=== PATIENT | female | born 1950 | race Caucasian/White ===

== ENCOUNTER 2019-08-17 07:35 | Outpatient (CLI) | payer MEDICARE, SELFPAY ==
[2019-08-17 08:19] LABS: Alanine Aminotransferase 27 U/L (4-35); Albumin Level 4.4 g/dL (3.5-5.1); Alkaline Phosphatase 92 U/L (38-126); Aspartate Amino Transferase 33 U/L (14-36); Bilirubin,Total 0.6 mg/dL (0.2-1.3); Blood Urea Nitrogen 11 mg/dL (7-17); Calcium 9.4 mg/dL (8.4-10.2); Carbon Dioxide 27 mmol/L (22-30); Chloride 102 mmol/L (98-107); Cholesterol 202 mg/dL (0-200); Estimated Glomerular Filt Rate 55; Glucose 146 mg/dL (65-105); HDL Direct 61 mg/dL; Potassium 4.4 mmol/L (3.4-5.0); Sodium 137 mmol/L (137-145); Triglycerides 216 mg/dL (<150)
[2019-08-17 08:26] LABS: Hemoglobin A1C 6.3 % (<5.7)
[2019-08-17 08:29] LABS: LDL Cholesterol Direct 103 mg/dL
[2019-08-17 08:43] LABS: Creatinine Urine 263.4 mg/dL
[2019-08-17 08:47] LABS: MALB Creatinine Ratio 12.7 mg/g (0-30); Microalbumin Urine Random 33.5 mg/L (0-16.7)
== END 2019-08-17 07:36 | disposition home or self-care (01) ==
LOC: ANHLAB 07:37
PROVIDERS: PCP Emergency Medicine; Visit Provider Emergency Medicine
DX: E07.9 Disorder of thyroid, unspecified (principal); E78.5 Hyperlipidemia, unspecified; E11.9 Type 2 diabetes mellitus without complications
CPT/HCPCS: 36415; 80053; 80061; 82043; 83036; 84443

== ENCOUNTER 2019-09-29 09:53 | Outpatient (CLI) | payer MEDICARE, SELFPAY | END 2019-09-29 09:54 | disposition home or self-care (01) | LOC: ANHLAB 09:54 | PROVIDERS: PCP Emergency Medicine; Visit Provider Emergency Medicine | DX: R53.83 Other fatigue (principal) | CPT/HCPCS: 36415; 84443 ==

== ENCOUNTER 2019-12-28 08:00 | Outpatient (CLI) | payer MEDICARE, SELFPAY ==
[2019-12-28 08:46] LABS: Alanine Aminotransferase 37 U/L (4-35); Albumin Level 4.4 g/dL (3.5-5.1); Alkaline Phosphatase 96 U/L (38-126); Anion Gap 12 mmol/L (8-16); Aspartate Amino Transferase 42 U/L (14-36); Bilirubin,Total 0.8 mg/dL (0.2-1.3); Blood Urea Nitrogen 11 mg/dL (7-17); Calcium 9.7 mg/dL (8.4-10.2); Carbon Dioxide 27 mmol/L (22-30); Chloride 100 mmol/L (98-107); Cholesterol 186 mg/dL (0-200); Estimated Glomerular Filt Rate > 60; Glucose 159 mg/dL (65-105); HDL Direct 56 mg/dL; Potassium 4.5 mmol/L (3.4-5.0); Sodium 139 mmol/L (137-145); Triglycerides 271 mg/dL (<150)
[2019-12-28 08:57] LABS: LDL Cholesterol Direct 91 mg/dL
== END 2019-12-28 08:01 | disposition home or self-care (01) ==
PROVIDERS: PCP Emergency Medicine; Visit Provider Emergency Medicine
DX: E78.5 Hyperlipidemia, unspecified (principal); E11.9 Type 2 diabetes mellitus without complications; E07.9 Disorder of thyroid, unspecified
CPT/HCPCS: 36415; 80053; 80061; 83036; 84443

== ENCOUNTER 2020-04-26 07:39 | Outpatient (CLI) | payer MEDICARE, SELFPAY ==
[2020-04-26 08:28] LABS: Hemoglobin A1C 5.7 % (<5.7)
[2020-04-26 08:32] LABS: Alanine Aminotransferase 26 U/L (4-35); Albumin Level 4.2 g/dL (3.5-5.1); Alkaline Phosphatase 76 U/L (38-126); Anion Gap 8 mmol/L (8-16); Aspartate Amino Transferase 34 U/L (14-36); Bilirubin,Total 0.7 mg/dL (0.2-1.3); Blood Urea Nitrogen 12 mg/dL (7-17); Calcium 9.2 mg/dL (8.4-10.2); Carbon Dioxide 27 mmol/L (22-30); Chloride 104 mmol/L (98-107); Cholesterol 183 mg/dL (0-200); Estimated Glomerular Filt Rate > 60; Glucose 121 mg/dL (65-105); HDL Direct 55 mg/dL; Potassium 4.4 mmol/L (3.4-5.0); Sodium 139 mmol/L (137-145); Triglycerides 210 mg/dL (<150)
[2020-04-26 08:42] LABS: LDL Cholesterol Direct 93 mg/dL
[2020-04-26 08:43] LABS: Creatinine Urine 171.2 mg/dL
[2020-04-26 08:47] LABS: MALB Creatinine Ratio 10.2 mg/g (0-30); Microalbumin Urine Random 17.4 mg/L (0-16.7)
== END 2020-04-26 07:40 | disposition home or self-care (01) ==
PROVIDERS: PCP Emergency Medicine; Visit Provider Emergency Medicine
DX: E78.5 Hyperlipidemia, unspecified (principal); E11.9 Type 2 diabetes mellitus without complications
CPT/HCPCS: 36415; 80053; 80061; 82043; 83036

== ENCOUNTER → 2020-06-25 12:04 | Outpatient (CLI) | payer MEDICARE, SELFPAY ==
--- NOTE | ~2020-06-25 | DEXA_ITS ---
Bone Density Report Name: Stacie Rivera Age: 70 Sex: Female Ethnicity: White Date of : 1950 Indication: postmenopausal; screening for osteoporosis; parental hip fracture; hysterectomy; Referring Provider: MORAIMA DUARTE Study: Bone densitometry was performed. Exam Date: June 25, 2020 Accession number: [id number] Bone Density: Region BMD T-score Z-score Classification AP Spine (L1-L4) 1.188 1.3 3.5 Normal Femoral Neck (Left) 0.773 -0.7 1.2 Normal Total Hip (Left) 1.012 0.6 2.1 Normal Femoral Neck (Right) 0.742 -1.0 0.9 Normal Total Hip (Right) 0.928 -0.1 1.4 Normal Total Hip Mean 0.970 0.3 1.8 Normal World Health Organization criteria for BMD impression classify patients as: Normal (T-score at or above -1.0), Osteopenia (T-score between -1.0 and -2.5), or Osteoporosis (T-score at or below -2.5). 10-year Fracture Risk: FRAX not reported because: All T-scores for Spine Total, Hip Total, Femoral Neck at or above -1.0 Clinical Information Provided by Patient: Parent has had a hip fracture Has used the following medications: Vitamin D, Calcium Has the following medical conditions: Hysterectomy Patient maximum height was 64 Menopause Age: 48 No regular weight bearing exercise Drinks caffeinated beverages Onset of menses at age 9 Number of children 2 Impression: The patient has normal bone mass. The patient has risk factors, including: parental hip fracture. Discussion: BONE DENSITY IS ABOVE THE MINIMUM DESIRABLE LEVEL AT ALL SKELETAL SITES TESTED. This patient?s bone mineral density is above the minimum desirable level (T-score -1.0 or better) at all sites measured. The patient should follow a healthful lifestyle (good nutrition with adequate calcium and vitamin D, and appropriate weight-bearing exercise). Follow-Up: Consider repeating this study in 5 years or sooner if there is some new clinical indication. Reported by: MO on 06/25/2020 12:24:00 PM. Reviewed, dictated and finalized at location [facility]
== END ==
PROVIDERS: PCP Emergency Medicine; Visit Provider Emergency Medicine
DX: Z78.0 Asymptomatic menopausal state (principal)
CPT/HCPCS: 77080

== ENCOUNTER 2020-06-28 14:42 | Emergency (ER) | payer MEDICARE, SELFPAY ==
--- NOTE | ~2020-06-28 | CT_ITS ---
EXAMINATION: CT brain wo con DATE: 06/28/2020 16:06 INDICATION: Head injury. TECHNIQUE: Computed tomography (CT) of the head was performed without intravenous contrast. The mA wa s adjusted according to patient size. Iterative reconstruction technique was employed. The dose-lengt h product was 605.33 mGy-cm. COMPARISON: Head CT 08/18/2012 FINDINGS: There is no intracranial hemorrhage, acute infarction, or abnormal intracranial mass lesion . The ventricles are normal in size. There is a left posterior scalp hematoma. There are likely fox es of ocular lens replacement surgeries. The paranasal sinuses are clear. The mastoid air cells are n ormal. IMPRESSION: 1. Normal brain. Reviewed, dictated and finalized at location A. IMPRESSION: 1. Normal brain.
--- NOTE | ~2020-06-28 | XR_ITS ---
EXAMINATION: XR elbow LT min 3V DATE: 06/28/2020 15:15 INDICATION: Left elbow pain TECHNIQUE: Anteroposterior, two oblique and lateral views of the left elbow were obtained. COMPARISON: None. FINDINGS: Alignment is normal. No fracture or joint effusion. Joint spaces are normal. There is dorsa l soft tissue swelling of the elbow. IMPRESSION: 1. No acute osseous abnormality. Reviewed, dictated and finalized at location B.
--- NOTE | ~2020-06-28 | CT_ITS ---
EXAMINATION: CT cervical spine wo con DATE: 06/28/2020 16:06 INDICATION: Head injury. TECHNIQUE: Computed tomography (CT) of the cervical spine was performed without intravenous contrast. Automated exposure control and iterative reconstruction technique were employed. The dose-length pro duct was 389.69 mGy-cm. COMPARISON: None FINDINGS: There is 2 mm anterolisthesis of C7 on T1. There is 7 degrees dextrocurvature of cervical s pine. Vertebral body heights are normal. There is mildly decreased disc height at C3-C4, severely dec reased disc height at C4-C5, moderately decreased disc height at C5-C6, and severely decreased disc h eight at C6-C7. The following disc levels are specifically discussed: C2-C3: There is mild right and moderate left uncovertebral joint osteoarthritis. There is mild right and severe left facet joint osteoarthritis. There is mild left neural foraminal stenosis. There is mi ld central canal stenosis. C3-C4: There is moderate right and severe left uncovertebral joint osteoarthritis. There is mild bila teral facet joint osteoarthritis. There is mild right neural foraminal stenosis. There is no central canal stenosis. C4-C5: There is moderate right and severe left uncovertebral joint osteoarthritis. There is mild bila teral facet joint osteoarthritis. There is moderate left neural foraminal stenosis. There is mild velia tral canal stenosis. C5-C6: There is severe bilateral uncovertebral joint osteoarthritis. There is no facet joint osteoart hritis. There is mild bilateral neural foraminal stenosis. There is mild central canal stenosis. C6-C7: There is severe bilateral uncovertebral joint osteoarthritis. There is mild right and moderate left facet joint osteoarthritis. There is mild bilateral neural foraminal stenosis. There is mild ce ntral canal stenosis. C7-T1: There is no uncovertebral joint osteoarthritis. There is moderate right and severe left facet joint osteoarthritis. There is mild left neural foraminal stenosis. There is no central canal stenosi s. IMPRESSION: 1. No fracture. 2. Severe cervical spondylosis. Reviewed, dictated and finalized at location A.
[2020-06-28 14:46] VITALS: BP 123/72; PULSE 82; RESP 20; TEMP 36.4; O2SAT 99
[2020-06-28 17:46] VITALS: BP 111/93; PULSE 72; RESP 18; O2SAT 97
--- NOTE | 2020-06-28 18:07 | ED.GENADULT ---
HPI - General Adult General Chief complaint: Fall Stated complaint: fall Time Seen by Provider: 06/28/20 17:53 Source: patient Mode of arrival: ambulatory Limitations: no limitations History of Present Illness HPI narrative: Patient is a 70-year-old female who was evaluated in the emergency department for injuries related to a ground-level fall after tripping over her dog chain patient notes pain to the head where she has a hematoma she also notes pain to the neck and lower lumbar region and left elbow patient denies loss of consciousness syncope patient has not taken anything for pain patient on arrival does not appear distressed or uncomfortable while patient waited in triage she had imaging of the head neck and left elbow which were unremarkable upon placement in the room patient was updated to her findings patient does not want any further imaging and notes that her low back pain is not severe and that she will follow with primary care if it persists patient feels comfortable with discharge home with follow-up with family physician Related Data Home Medications Medication Instructions Recorded Confirmed acetaminophen 500 mg tablet 500 mg PO DAILY PRN tablet 05/17/19 aspirin 81 mg tablet,delayed 81 mg PO DAILY 05/17/19 release cyanocobalamin (vitamin B-12) 1,000 mcg PO .COMPLEX 05/17/19 1,000 mcg tablet meclizine 25 mg tablet 25 mg PO TID PRN tablet 05/17/19 omega-3 fatty acids 1,000 mg 1,000 mg PO .daily in the am cap 05/17/19 capsule Allergies Allergy/AdvReac Type Severity Reaction Status Date / Time No Known Allergies Allergy Unverified 06/13/19 14:51 Review of Systems Review of Systems: All systems reviewed & are unremarkable except as noted in HPI and below [facility] Past Medical History Medical History (Updated 06/28/20 @ 18:13 by David Castillo PA-C) Arthritis Chicken pox Diabetes FH: cataracts High cholesterol Mononucleosis Mumps Surgical History Surgical History History of cholecystectomy (~2015) History of hysterectomy (~1998) Hx of tonsillectomy (~1957) Family History Family History Father , 39 Heart attack Mother , 94 Parkinsons disease Sibling Lung cancer Sibling Family history of allergic disorder Family history of diabetes mellitus in first degree relative Family history of lung cancer Hypertension Mother Family history of Parkinson's disease Family history of dementia Father Acute myocardial infarction Patient's father is Other Family history of cardiovascular disease Family history of irritable bowel syndrome Social History Social History Years smoked: 3 Smoking status: Former smoker Smoking end date: 03/15/89 Alcohol intake: former Substance use: never Gender identity (if verbalized by the patient): Female Exam Narrative: Exam Narrative: GENERAL: Well-appearing, well-nourished, and in no acute distress. HEAD: Normocephalic, hematoma to the posterior head EYES: PERRLA and EOMI. ENT: Nares clear, no rhinorrhea or epistaxis. Mucous membranes moist. NECK: Supple. No adenopathy or masses. CHEST: Clear to auscultation. No respiratory distress. No wheezes rales or rhonchi HEART: Regular rate and rhythm. No murmur heard. Normal peripheral pulses. ABDOMEN: Soft, nontender, nondistended EXTREMITIES: Normal range of motion. No edema. Abrasion left elbow with tenderness. Mild tenderness of the cervical and lumbar spine no thoracic tenderness SKIN: Warm, dry, no rash. NEURO: No focal deficits. Alert and oriented x3. Cranial nerves II through XII grossly intact. Normal speech and gait PSYCH: Normal mood and affect. Course Course Emergency Course: Patient in the room at this time aware of case findings treatment plan diagnos
[2020-06-28] MEDS: HYDROcodone/acetaminophen (*CRX) 5-325 MG TABLET 1 TAB PO (18:20)
== END 2020-06-28 18:39 | disposition home or self-care (01) ==
PROVIDERS: Emergency Provider Emergency Medicine; PCP Emergency Medicine
DX: S00.03XA Contusion of scalp, initial encounter (principal); S16.1XXA Strain of muscle, fascia and tendon at neck level, initial encounter; S39.012A Strain of muscle, fascia and tendon of lower back, initial encounter; S50.02XA Contusion of left elbow, initial encounter; M19.90 Unspecified osteoarthritis, unspecified site; E11.9 Type 2 diabetes mellitus without complications; E78.00 Pure hypercholesterolemia, unspecified; Z87.891 Personal history of nicotine dependence; M47.812 Spondylosis without myelopathy or radiculopathy, cervical region; Z79.82 Long term (current) use of aspirin; Z79.84 Long term (current) use of oral hypoglycemic drugs; W18.09XA Striking against other object with subsequent fall, initial encounter
CPT/HCPCS: 70450; 72125; 73080; 99284; A9270

== ENCOUNTER 2020-10-04 07:05 | Outpatient (CLI) | payer MEDICARE, SELFPAY ==
[2020-10-04 08:17] LABS: Alanine Aminotransferase 25 U/L (4-35); Albumin Level 4.4 g/dL (3.5-5.1); Alkaline Phosphatase 81 U/L (38-126); Anion Gap 10 mmol/L (8-16); Aspartate Amino Transferase 32 U/L (14-36); Bilirubin,Total 0.6 mg/dL (0.2-1.3); Blood Urea Nitrogen 12 mg/dL (7-17); Calcium 9.8 mg/dL (8.4-10.2); Carbon Dioxide 27 mmol/L (22-30); Chloride 102 mmol/L (98-107); Cholesterol 210 mg/dL (0-200); Estimated Glomerular Filt Rate > 60; Glucose 120 mg/dL (65-110); HDL Direct 59 mg/dL; Potassium 4.7 mmol/L (3.4-5.0); Sodium 139 mmol/L (137-145); Triglycerides 270 mg/dL (<150)
[2020-10-04 08:28] LABS: LDL Cholesterol Direct 97 mg/dL
[2020-10-04 11:42] LABS: Hemoglobin A1C 5.8 % (<5.7)
[2020-10-04 12:10] LABS: Vitamin B12 > 1000.0 pg/mL (239-931)
== END 2020-10-04 07:06 | disposition home or self-care (01) ==
PROVIDERS: PCP Internal Medicine; Visit Provider Internal Medicine
DX: R41.3 Other amnesia (principal); E11.9 Type 2 diabetes mellitus without complications; I10 Essential (primary) hypertension; E03.9 Hypothyroidism, unspecified; E78.5 Hyperlipidemia, unspecified
CPT/HCPCS: 36415; 80053; 80061; 82607; 83036; 84443

== ENCOUNTER 2021-02-04 10:07 | Emergency (ER) | payer MEDICARE, SELFPAY ==
[2021-02-04] VITALS (17 sets, daily range): BP systolic 70–123; BP diastolic 56–76; PULSE 74–112; RESP 14–35; TEMP 36.4–37.7; O2SAT 99–100
--- NOTE | ~2021-02-04 | XR_ITS ---
EXAMINATION: XR chest port-a-cath/central EXAM DATE: 02/04/2021 13:12 INDICATION: central line placement check TECHNIQUE: Portable AP frontal chest x-ray was obtained. Comparison is made to prior examination from 11/17/2012. FINDINGS: There is a right-sided IJ venous line, tip projecting over cavoatrial junction. Relatively low lung volume. No confluent consolidation, pneumothorax or pleural effusion suspected. There are no sizable pleural effusions. There is no pneumothorax suspected. The cardiomediastinal silhouet te is prominent but magnified on this AP technique. The bones and soft tissues are unremarkable. IMPRESSION: No postprocedure pneumothorax or acute cardiopulmonary findings. Reviewed, dictated and finalized at location A. [employer]
--- NOTE | ~2021-02-04 | NM_ITS ---
EXAMINATION: NM GI bleeding DATE: 02/04/2021 16:16 INDICATION: Rectal bleeding TECHNIQUE: 20.2 mCi Tc 99m in vitro labeled red cells administered intravenously. Scintigraphic imag es of the abdomen were obtained through 1 hour. FINDINGS: No pattern of abnormal activity is seen in the abdomen or pelvis to suggest gastrointestina l hemorrhage. IMPRESSION: 1. No scintigraphic evidence for active gastrointestinal bleeding. Reviewed, dictated and finalized at location A. [employer]
--- NOTE | ~2021-02-04 | CT_ITS ---
EXAMINATION: CT abdomen pelvis w con DATE: 02/04/2021 14:05 INDICATION: Gastrointestinal bleed TECHNIQUE: Computed tomography (CT) of the abdomen and pelvis was performed with 100 mL Omnipaque-350 intravenous contrast. Automated exposure control and iterative reconstruction technique were employe d. The dose-length product was 1421.03 mGy-cm. COMPARISON: Abdominal MRI dated 04/12/2015 FINDINGS: Mild emphysema with mild atelectasis likely related to expiratory phase of imaging in the bilateral l ower lung zones. Heart size is normal. No pericardial or pleural effusion. Tip of a central venous ca theter extends caudally from the superior vena cava into the high right atrium. Mild dilation of the common bile duct measuring up to 7 mm which is within normal limits post cholecystectomy with surgica l clips at the gallbladder fossa. Liver, spleen, pancreas, bilateral adrenal glands and right kidney are normal. 1.4 similar exophytic left renal cyst. There is mild colonic diverticulosis with a sigmoi d predominance. Fluid in the distal colon consistent with diarrhea. There is no adjacent inflammatory change to suggest diverticulitis. Small bowel and appendix are normal. Bladder is normal. The uterus is not identified and has likely been surgically resected. No free intraperitoneal gas or fluid. No pathologically enlarged abdominal or pelvic lymphadenopathy. Small fat-containing umbilical and supra umbilical hernias. Severe disc height loss at L5-S1 with mild levocurvature and mild spondylosis in t he more cephalad lumbar spine. IMPRESSION: 1. Mild sigmoid predominant diverticulosis with fluid in the distal colon consistent with diarrhea. Reviewed, dictated and finalized at location A. [employer] IMPRESSION: 1. Mild sigmoid predominant diverticulosis with fluid in the distal colon consi stent with diarrhea.
--- NOTE | 2021-02-04 10:27 | ED.GENADULT ---
HPI - General Adult General Chief complaint: GI Bleed <Benny Garcia PA-C - Last Filed: 02/04/21 16:25> Stated complaint: lots of blood coming out of my butt <Benny Garcia PA-C - Last Filed: 02/04/21 16:25> Time Seen by Provider: 02/04/21 10:10 <Benny Garcia PA-C - Last Filed: 02/04/21 16:25> Source: patient <SEGUN Nuñez Last Filed: 02/04/21 16:25> Mode of arrival: ambulatory <SEGUN Nuñez Last Filed: 02/04/21 16:25> Limitations: no limitations <Benny Garcia PA-C - Last Filed: 02/04/21 16:25> History of Present Illness HPI narrative: Patient is 70-year-old female with chief complaint of profuse bright red rectal bleeding mixed with diarrhea that began this morning. Patient reports that she has had 4 bouts of completely liquid bright red bloody stool. She denies having any abdominal pain, nausea, vomiting, fever, chills, shortness of breath, chest pain. Patient states she has never had a colonoscopy. Patient denies having a history of ulcers or prior GI bleed. She states that Dr. Delarosa remove her gallbladder approximately 4 years ago. She reports intermittent bouts of diarrhea depending on what she eats since that time but not containing blood. Patient reports taking a baby aspirin daily. <Benny Garcia PA-C - Last Filed: 02/04/21 16:25> Related Data Home medications: Home Medications Medication Instructions Recorded Confirmed acetaminophen 500 mg tablet 500 mg PO DAILY PRN tablet 05/17/19 09/30/20 aspirin 81 mg tablet,delayed 81 mg PO DAILY 05/17/19 09/30/20 release cyanocobalamin (vitamin B-12) 1,000 mcg PO .COMPLEX 05/17/19 09/30/20 1,000 mcg tablet meclizine 25 mg tablet 25 mg PO TID PRN tablet 05/17/19 09/30/20 omega-3 fatty acids 1,000 mg 1,000 mg PO .daily in the am cap 05/17/19 09/30/20 capsule <Benny Garcia PA-C - Last Filed: 02/04/21 16:25> Allergies/adverse reactions: Allergies Allergy/AdvReac Type Severity Reaction Status Date / Time No Known Allergies Allergy Verified 09/30/20 08:52 <Benny Garcia PA-C - Last Filed: 02/04/21 16:25> Review of Systems Review of Systems: CONSTITUTIONAL: Denies fever, chills, or sweats. EYES: Denies visual changes, redness, or discharge. ENT: Denies rhinorrhea, congestion, sore throat, or otalgia. CARDIOVASCULAR: Denies chest pain, palpitations, or edema. RESPIRATORY: Denies cough or dyspnea. GASTROINTESTINAL: Reports rectal bleeding and diarrhea denies abdominal pain, nausea, vomiting GENITOURINARY: Denies dysuria or hematuria. SKIN: Denies rash or itching. MUSCULOSKELETAL: Denies back pain, joint pain, or myalgia. NEUROLOGIC: Denies headache, numbness, dizziness, or weakness. PSYCHIATRIC: Denies anxiety or depression. <Benny Garcia PA-C - Last Filed: 02/04/21 16:25> [facility] Past Medical History Medical History: Medical History (Updated 02/04/21 @ 16:25 by Benny Garcia PA-C) Anxiety Arthritis Change in weight Chicken pox Diabetes Diabetes mellitus Difficulty breathing Dizziness FH: cataracts Hair changes Hepatitis High cholesterol Hot flashes Memory loss Mononucleosis Mumps Numbness Painful joint Skin change Weakness <Benny Garcia PA-C - Last Filed: 02/04/21 16:25> Surgical History Surgical History: Surgical History History of cholecystectomy (~2015) History of hysterectomy (~1998) Hx of tonsillectomy (~1957) <Benny Garcia PA-C - Last Filed: 02/04/21 16:25> Family History Family History: Family History (Updated 09/30/20 @ 08:43 by Jie Lombardo [facility]) Father , 39 Heart attack Hypertension Mother , 94 Parkinsons disease Dementia Sibling Lung cancer Sibling Family history of allergic disorder Family history of diabetes mellitus in first degree relative Family history of lung cancer Hypertension Mother Family history of
[2021-02-04 10:49] LABS: Basophils Absolute Auto 0.1 K/mm3 (0.0-0.1); Basophils Percent Auto 1.2 % (0.2-1.2); Eosinophils Absolute Auto 0.2 K/mm3 (0-0.3); Eosinophils Percent Auto 2.3 % (0-4.4); Hematocrit 36.2 % (37.0-47.0); Hemoglobin 12.2 g/dL (12.0-15.0); Immature Granulocyte Absolute 0.06 K/mm3 (0.00-0.031); Immature Granulocyte Percent A 0.6 % (0-0.5); Lymphocytes Absolute Auto 2.48 K/mm3 (0.9-3.2); Lymphocytes Percent Auto 24.8 % (18.3-44.2); Mean Corpuscular HGB Conc 33.7 g/dl (32-36); Mean Corpuscular Hemoglobin 30.1 pg (26-34); Mean Corpuscular Volume 89.4 fl (80-100); Mean Platelet Volume 9.8 fl (7.4-10.4); Monocytes Absolute Auto 0.5 K/mm3 (0.1-0.6); Monocytes Percent Auto 4.7 % (2.6-8.5); Neutrophils Absolute Auto 6.7 K/mm3 (1.3-6.7); Neutrophils Percent Auto 66.4 % (45.5-73.1); Platelet Count Result 493 k/mm3 (150-375); Red Blood Count 4.05 M/mm3 (4.2-5.4); Red Cell Distribution Width 12.7 % (11.5-14.5)
[2021-02-04 10:58] LABS: Alanine Aminotransferase 18 U/L (4-35); Albumin Level 3.9 g/dL (3.5-5.1); Alkaline Phosphatase 80 U/L (38-126); Anion Gap 14 mmol/L (8-16); Aspartate Amino Transferase 26 U/L (14-36); Bilirubin,Total 0.5 mg/dL (0.2-1.3); Blood Urea Nitrogen 13 mg/dL (7-17); Calcium 9.1 mg/dL (8.4-10.2); Carbon Dioxide 20 mmol/L (22-30); Chloride 100 mmol/L (98-107); Estimated CRCL calculation 52 ml/min; Estimated Glomerular Filt Rate > 60; Glucose 278 mg/dL (65-110); Partial Thromboplastin Time 26.1 SECONDS (22.3-36.8); Potassium 5.1 mmol/L (3.4-5.0); Sodium 134 mmol/L (137-145)
[2021-02-04] MEDS: SODIUM CHLORIDE 0.9% IV 1,000 ML 999 ML IV CONT ×2 (11:01→12:06)
[2021-02-04] MEDS: LORazepam INJ (*CRX) 2 MG/ML VIAL IV PUSH (12:06)
[2021-02-04] MEDS: HYDROmorphone HCL INJ (*CRX) 1 MG/ML SYR 0.5 MG IV PUSH (12:22)
[2021-02-04] MEDS: ONDANSETRON INJ 4 MG/2 ML VIAL (12:55)
--- NOTE | 2021-02-04 13:26 | PC.NURSE ---
transfer center call to have a face sheet faxed to facility. faxed@ [phone]
[2021-02-04 13:29] LABS: Hemoglobin 7.6 g/dL (12.0-15.0)
[2021-02-04] MEDS: PANTOPRAZOLE SODIUM IV 40 MG VIAL IV PUSH (13:29)
[2021-02-04] MEDS: SODIUM CHLORIDE 0.9% IV 250 ML 30 ML IV CONT (14:51)
--- NOTE | 2021-02-04 16:00 | PC.NURSE ---
Pt with nuclear medicine for scan at 1600, will perform patient's 1600 vitals for blood administration when patient returns.
--- NOTE | 2021-02-04 18:14 | PC.NURSE ---
Called Alexa at 1808, accepted transfer to [facility], room 3608. Eta 2100. Tip number [phone]
--- NOTE | 2021-02-04 20:00 | PC.NURSE ---
[facility] here to transport patient.
--- NOTE | 2021-02-04 20:07 | PM.IMHP ---
H&P: HPI History of Present Illness Date/Time: 02/04/21 20:07 this is a 70-year-old female patient who has not had any previous his use of a colonoscopy. She is not on any blood thinners. The patient stated that since early this morning she started having bright red bloody stools. She stated that she has had hemorrhoids before but never had any bleeding from them just a lot of pain. She denies any fever or chills. The patient is only taking a baby aspirin. Patient's H&H initially was 12.2 and 36.2 repeat H&H was 7.6 and 23.0. The patient received a blood transfusion in the emergency room. The patient is pale and having difficulty concentrating. Sodium 134 potassium 5.1. Her glucose is 278. Chest x-ray was read as no postprocedure pneumothorax or acute cardiopulmonary findings. The patient did have a central line placed on the right side of her neck in the emergency room. Abdominal pelvis CT was read as mild sigmoid predominant diverticulosis with fluid in the distal colon consistent with diarrhea. GI bleed scan was read as no scintigraphic evidence for acute gastrointestinal bleeding. The patient was given 3 L of fluid in the emergency room. She is also given Ativan once. A lot at once. IV Zofran. GI was consulted here and wanted to start a bowel prep. Home Inspector was notified. However was recommended that the patient be transferred to higher level of care. Multiple hospital were called per ED provider. We are awaiting a bed with higher level of care. Is reported that the patient has a bed available. This is the short-stay summary as the patient is going to be transferred elsewhere. She was initially admitted to observation status on the date of service 02/04/2021. Chief Complaint: GI bleed Review of Systems Review of Systems: All systems reviewed & are unremarkable except as noted in HPI and below Constitutional: Constitutional: Reports as per HPI and Reports no additional constitutional complaints Eyes: Eyes: Reports as per HPI and Reports no additional eye complaints ENT: Reports system reviewed and no additional complaints, except as documented and Reports Normal hearing present Cardiovascular: Cardiovascular: Reports no additional cardiovascular complaints Respiratory: Respiratory: Reports no additional respiratory complaints and Reports no additional respiratory complaints Gastrointestinal: Gastrointestinal: Reports as per HPI and Reports no additional gastrointestinal complaints Musculoskeletal: Musculoskeletal: Reports no additional musculoskeletal complaints Integumentary/Breasts: Skin/Breast: Reports system reviewed and no additional complaints, except as docu and Reports as per HPI Neurologic: Reports system reviewed and no additional complaints, except as documented, Reports as per HPI and Reports Normal hearing present Psychiatric: Psychiatric: Reports no additional psychiatric complaints and Reports as per HPI Endocrine: Endocrine: Reports no additional endocrine complaints Hematologic/Lymphatic: Hematologic/Lymphatic: Reports no additional hematologic/lymphatic complaints Allergic/Immunologic: Allergic/Immunologic: Reports no additional allergic/immunologic complaints PMFSH Past Medical History Medical History Anxiety Arthritis Change in weight Chicken pox Diabetes Diabetes mellitus Difficulty breathing Dizziness FH: cataracts Hair changes Hepatitis High cholesterol Hot flashes Memory loss Mononucleosis Mumps Numbness Painful joint Skin change Weakness Surgical History Surgical History (Updated 02/04/21 @ 20:13 by Dayna Mariee NP) H/O cataract extraction History of cholecystectomy (~2015) History of hysterectomy (~1998) Hx of tonsillectomy (~1957) Family History Family History Father , 39 Heart attack Hypertension Mother , 94 Parkinsons di
== END 2021-02-04 20:22 | disposition short-term general hospital (02) ==
PROVIDERS: Physician Assistant; Emergency Provider Emergency Medicine; PCP Internal Medicine
DX: K92.2 Gastrointestinal hemorrhage, unspecified (principal); I10 Essential (primary) hypertension; E07.9 Disorder of thyroid, unspecified; E78.5 Hyperlipidemia, unspecified; E11.40 Type 2 diabetes mellitus with diabetic neuropathy, unspecified; M54.9 Dorsalgia, unspecified; G89.29 Other chronic pain; F41.9 Anxiety disorder, unspecified; H40.9 Unspecified glaucoma; M19.90 Unspecified osteoarthritis, unspecified site; K57.30 Diverticulosis of large intestine without perforation or abscess without bleeding; Z79.82 Long term (current) use of aspirin; Z79.84 Long term (current) use of oral hypoglycemic drugs
CPT/HCPCS: 36415; 36430; 36556; 74177; 78278; 80053; 85014; 85018; 85025; 85610; 85730; 86850; 86900; 86901; 86920; 96361; 96374; 96375; 99285; A9560; C1751; C9113; J1170; J2060; J2405; J7030; J7050; P9016; Q9967

== ENCOUNTER 2021-02-17 09:38 | Outpatient (CLI) | payer MEDICARE, SELFPAY ==
[2021-02-17 10:10] LABS: Basophils Absolute Auto 0.1 K/mm3 (0.0-0.1); Basophils Percent Auto 1.3 % (0.2-1.2); Eosinophils Absolute Auto 0.2 K/mm3 (0-0.3); Eosinophils Percent Auto 2.1 % (0-4.4); Hematocrit 33.7 % (37.0-47.0); Hemoglobin 10.8 g/dL (12.0-15.0); Immature Granulocyte Absolute 0.01 K/mm3 (0.00-0.031); Immature Granulocyte Percent A 0.1 % (0-0.5); Lymphocytes Absolute Auto 1.61 K/mm3 (0.9-3.2); Lymphocytes Percent Auto 18.5 % (18.3-44.2); Mean Corpuscular Hemoglobin 29.4 pg (26-34); Mean Corpuscular Volume 91.8 fl (80-100); Mean Platelet Volume 9.8 fl (7.4-10.4); Monocytes Absolute Auto 0.5 K/mm3 (0.1-0.6); Monocytes Percent Auto 5.3 % (2.6-8.5); Neutrophils Absolute Auto 6.3 K/mm3 (1.3-6.7); Neutrophils Percent Auto 72.7 % (45.5-73.1); Platelet Count Result 412 k/mm3 (150-375); Red Blood Count 3.67 M/mm3 (4.2-5.4); Red Cell Distribution Width 14.3 % (11.5-14.5); White Blood Count 8.7 K/mm3 (4.5-10.0)
[2021-02-17 10:11] LABS: Alanine Aminotransferase 20 U/L (4-35); Albumin Level 4.3 g/dL (3.5-5.1); Alkaline Phosphatase 71 U/L (38-126); Anion Gap 8 mmol/L (8-16); Aspartate Amino Transferase 29 U/L (14-36); Bilirubin,Total 0.4 mg/dL (0.2-1.3); Blood Urea Nitrogen 9 mg/dL (7-17); Calcium 9.3 mg/dL (8.4-10.2); Carbon Dioxide 25 mmol/L (22-30); Chloride 101 mmol/L (98-107); Estimated Glomerular Filt Rate > 60; Glucose 118 mg/dL (65-110); Potassium 4.6 mmol/L (3.4-5.0); Sodium 134 mmol/L (137-145)
== END 2021-02-17 09:39 | disposition home or self-care (01) ==
LOC: ANHLAB 09:42
PROVIDERS: PCP Internal Medicine; Visit Provider Nurse Practitioner
DX: K62.5 Hemorrhage of anus and rectum (principal); E11.40 Type 2 diabetes mellitus with diabetic neuropathy, unspecified
CPT/HCPCS: 36415; 80053; 85025

== ENCOUNTER 2021-03-27 09:12 | Outpatient (CLI) | payer MEDICARE, SELFPAY ==
[2021-03-27 09:41] LABS: Alanine Aminotransferase 24 U/L (4-35); Albumin Level 4.5 g/dL (3.5-5.1); Alkaline Phosphatase 80 U/L (38-126); Anion Gap 9 mmol/L (8-16); Aspartate Amino Transferase 30 U/L (14-36); Bilirubin,Total 0.4 mg/dL (0.2-1.3); Blood Urea Nitrogen 11 mg/dL (7-17); Calcium 9.7 mg/dL (8.4-10.2); Carbon Dioxide 25 mmol/L (22-30); Chloride 105 mmol/L (98-107); Cholesterol 216 mg/dL (0-200); Estimated Glomerular Filt Rate > 60; Glucose 111 mg/dL (65-110); HDL Direct 67 mg/dL; Potassium 4.8 mmol/L (3.4-5.0); Sodium 139 mmol/L (137-145); Triglycerides 242 mg/dL (<150)
[2021-03-27 09:48] LABS: Hemoglobin A1C 5.6 % (<5.7)
[2021-03-27 09:51] LABS: LDL Cholesterol Direct 97 mg/dL
== END 2021-03-27 09:13 | disposition home or self-care (01) ==
LOC: ANHLAB 09:16
PROVIDERS: PCP Internal Medicine; Visit Provider Internal Medicine
DX: E11.40 Type 2 diabetes mellitus with diabetic neuropathy, unspecified (principal); I10 Essential (primary) hypertension; E78.5 Hyperlipidemia, unspecified
CPT/HCPCS: 36415; 80053; 80061; 83036

== ENCOUNTER 2021-06-23 00:12 | Day surgery (SDC) | payer MEDICARE, SELFPAY ==
[2021-06-12 09:40] VITALS: BMI 32.8
[2021-06-23 08:54] VITALS: BP 142/83; PULSE 85; RESP 20; TEMP 36.1; O2SAT 100; BMI 33.6
[2021-06-23 08:54] LABS: Glucose Point of Care 134 mg/dl (65-105)
[2021-06-23] MEDS: LACTATED RINGERS 1,000 ML 150 ML IV CONT (09:10)
--- NOTE | 2021-06-23 09:10 | PM.HPGS ---
History of Present Illness History of Present Illness Consent: Risks, benefits, and alternatives have been discussed and questions answered. Patient agrees to proceed with procedure. Chief complaint: hx of colon polyps Narrative: Stacie Baker is a 71 year old female referred for colon cancer screening. She was found have a polyp during admission for lower gastrointestinal bleeding last year. She had a colonoscopy at [facility] where a polyp was seen but the physician elected not to remove it. Review of Systems Review of Systems: All systems reviewed & are unremarkable except as noted in HPI and below PMFSH Past Medical History Medical History Anxiety Arthritis Change in weight Chicken pox Diabetes Diabetes mellitus Difficulty breathing Dizziness FH: cataracts Hair changes Hepatitis High cholesterol Hot flashes Memory loss Mononucleosis Mumps Numbness Painful joint Skin change Weakness Surgical History Surgical History H/O cataract extraction History of cholecystectomy (~2016) History of hysterectomy (~1998) Hx of tonsillectomy (~7) Family History Family History Father , 39 Heart attack Hypertension Mother , 94 Parkinsons disease Dementia Sibling Lung cancer Sibling Family history of allergic disorder Family history of diabetes mellitus in first degree relative Family history of lung cancer Hypertension Mother Family history of Parkinson's disease Family history of dementia Father Acute myocardial infarction Patient's father is Son Heart disease Other Family history of cardiovascular disease Family history of irritable bowel syndrome Social History Social History Social History: the patient has 2 sons. She lives with 1 son and his family. She is an ex-smoker. She occasionally has a drink of alcohol. She is . She is retired from being a scale attendant. The son she lives with this is a durable power commercial litigation attorney. Code status full code Smoking packs per day: 1 Smoking cigarettes per day: 20.0 Years smoked: 3 Smoking pack-years: 3.00 Smoking status: Former smoker Tobacco type: cigarettes Smoking end date: 03/15/89 Alcohol intake: former Alcohol use details: No alcohol for years Substance use: never Substance use type: does not use Living arrangements: with family Gender identity (if verbalized by the patient): Female Spiritual care concerns: No Meds Home Medications and Allergies Home Medications Medication Instructions Recorded Confirmed Type acetaminophen 500 mg tablet 500 mg PO DAILY PRN tablet 05/17/19 06/23/21 History cyanocobalamin (vitamin B-12) 1,000 mcg PO DAILY 05/17/19 06/23/21 History 1,000 mcg tablet meclizine 25 mg tablet 25 mg PO TID PRN tablet 05/17/19 06/23/21 History omega-3 fatty acids 1,000 mg 1,000 mg PO .daily in the am cap 05/17/19 06/23/21 History capsule blood sugar diagnostic #200 ea 04/21/21 05/01/21 Rx lancets 28 gauge #100 ea 04/21/21 05/01/21 Rx amitriptyline 100 mg PO HS 06/12/21 06/23/21 History ascorbic acid (vitamin C) 600 mg PO BID 06/12/21 06/23/21 History atenolol 100 mg PO DAILY 06/12/21 06/12/21 History atorvastatin 20 mg PO DAILY 06/12/21 06/23/21 History levothyroxine 75 mcg PO DAILY 06/12/21 06/12/21 History linagliptin [Tradjenta] 5 mg PO DAILY 06/12/21 06/23/21 History metformin 1,000 mg PO DAILY 06/12/21 06/23/21 History Allergies Allergy/AdvReac Type Severity Reaction Status Date / Time No Known Allergies Allergy Verified 06/23/21 08:53 Vital Signs Vital Signs - 24 hr 06/23/21 08:54 Temperature 36.1 C L Pulse Rate 85 Respiratory Rate 20 Blood Pressure 142/83 H Pulse
--- NOTE | 2021-06-23 09:20 | WPDANESEPPF ---
Anes - Initial Pre Proc Eval Procedure: Operation Date: 06/23/21 10:00 Proposed Procedures p Screening Colonoscopy - Ilya Rain MD Date/Time: 06/23/21 09:20 Surgeon: Ilya Rain MD Pre Op Diagnosis: hx of colon polyps Patient Data Age: 71 Gender: F Height: 1.6 m Weight: 86.1 kg Last Vital Signs Temp 97.0 F L 06/23/21 08:54 Pulse 85 06/23/21 08:54 Resp 20 06/23/21 08:54 BP 142/83 H 06/23/21 08:54 Pulse Ox 100 06/23/21 08:54 Allergies Allergy/AdvReac Type Severity Reaction Status Date / Time No Known Allergies Allergy Verified 06/23/21 08:53 Home Medications Medication Instructions Recorded Confirmed Type acetaminophen 500 mg tablet 500 mg PO DAILY PRN tablet 05/17/19 06/23/21 History cyanocobalamin (vitamin B-12) 1,000 mcg PO DAILY 05/17/19 06/23/21 History 1,000 mcg tablet meclizine 25 mg tablet 25 mg PO TID PRN tablet 05/17/19 06/23/21 History omega-3 fatty acids 1,000 mg 1,000 mg PO .daily in the am cap 05/17/19 06/23/21 History capsule blood sugar diagnostic #200 ea 04/21/21 05/01/21 Rx lancets 28 gauge #100 ea 04/21/21 05/01/21 Rx amitriptyline 100 mg PO HS 06/12/21 06/23/21 History ascorbic acid (vitamin C) 600 mg PO BID 06/12/21 06/23/21 History atenolol 100 mg PO DAILY 06/12/21 06/12/21 History atorvastatin 20 mg PO DAILY 06/12/21 06/23/21 History levothyroxine 75 mcg PO DAILY 06/12/21 06/12/21 History linagliptin [Tradjenta] 5 mg PO DAILY 06/12/21 06/23/21 History metformin 1,000 mg PO DAILY 06/12/21 06/23/21 History Laboratory Tests 06/23/21 08:50 POC Capillary Glucose 134 mg/dl H mg/dl (65-105) Patient hx anesthesia problems: none Family hx anesthesia problems: none Results Review: All pre-operative results and documents have been reviewed as part of the pre-operative evaluation. [facility] Past Medical History Medical History Anxiety Arthritis Change in weight Chicken pox Diabetes Diabetes mellitus Difficulty breathing Dizziness FH: cataracts Hair changes Hepatitis High cholesterol Hot flashes Memory loss Mononucleosis Mumps Numbness Painful joint Skin change Weakness Surgical History Surgical History H/O cataract extraction History of cholecystectomy (~2016) History of hysterectomy (~1998) Hx of tonsillectomy (~1957) Family History Family History Father , 39 Heart attack Hypertension Mother , 94 Parkinsons disease Dementia Sibling Lung cancer Sibling Family history of allergic disorder Family history of diabetes mellitus in first degree relative Family history of lung cancer Hypertension Mother Family history of Parkinson's disease Family history of dementia Father Acute myocardial infarction Patient's father is Son Heart disease Other Family history of cardiovascular disease Family history of irritable bowel syndrome Social History Social History Social History: the patient has 2 sons. She lives with 1 son and his family. She is an ex-smoker. She occasionally has a drink of alcohol. She is . She is retired from being a office machines sales representative. The son she lives with this is a durable power meat molder. Code status full code Smoking packs per day: 1 Smoking cigarettes per day: 20.0 Years smoked: 3 Smoking pack-years: 3.00 Smoking status: Former smoker Tobacco type: cigarettes Smoking end date: 03/15/89 Alcohol intake: former Alcohol use details: No alcohol for years Substance use: never Substance use type: does not use Living arrangements: with family Gender identity (if verbalized by the patient): Female Spiritual care concerns: No Anes - Eval Final PreProcedure Day of Pro
[2021-06-23 10:05] VITALS: BP 122/79; PULSE 70; RESP 18; O2SAT 98
[2021-06-23 10:15] VITALS: BP 118/67; PULSE 70; RESP 23; O2SAT 98
[2021-06-23 10:25] VITALS: BP 127/75; PULSE 66; RESP 17; O2SAT 100
== END 2021-06-23 10:39 | disposition home or self-care (01) ==
PROVIDERS: PCP Internal Medicine; Visit Provider Internal Medicine Gastroenterology
PROC: 0DJD8ZZ Inspection of Lower Intestinal Tract, Via Natural or Artificial Opening Endoscopic (ICD-10-PCS; CPT 45378; principal; 2021-06-23 10:00)
DX: Z12.11 Encounter for screening for malignant neoplasm of colon (principal); K63.5 Polyp of colon; E11.9 Type 2 diabetes mellitus without complications; E78.00 Pure hypercholesterolemia, unspecified; K57.30 Diverticulosis of large intestine without perforation or abscess without bleeding; M19.90 Unspecified osteoarthritis, unspecified site; F41.9 Anxiety disorder, unspecified; Z87.891 Personal history of nicotine dependence
CPT/HCPCS: 45385; 82948; 88305; J2704; J7120

== ENCOUNTER 2021-10-29 07:34 | Outpatient (CLI) | payer MEDICARE, SELFPAY ==
[2021-10-29 08:07] LABS: Hematocrit 39.4 % (37.0-47.0); Hemoglobin 12.9 g/dL (12.0-15.0)
[2021-10-29 08:26] LABS: Hemoglobin A1C 5.9 % (<5.7)
[2021-10-29 08:28] LABS: Alanine Aminotransferase 36 U/L (6-35); Albumin Level 4.1 g/dL (3.5-5.1); Alkaline Phosphatase 79 U/L (38-126); Anion Gap 8 mmol/L (8-16); Aspartate Amino Transferase 48 U/L (14-36); Bilirubin,Total 0.7 mg/dL (0.2-1.3); Blood Urea Nitrogen 11 mg/dL (7-17); Carbon Dioxide 26 mmol/L (22-30); Chloride 98 mmol/L (98-107); Cholesterol 166 mg/dL (0-200); Estimated Glomerular Filt Rate 55; Glucose 144 mg/dL (65-110); HDL Direct 46 mg/dL; Potassium 4.2 mmol/L (3.4-5.0); Sodium 132 mmol/L (137-145); Triglycerides 176 mg/dL (<150)
[2021-10-29 08:41] LABS: LDL Cholesterol Direct 69 mg/dL
== END 2021-10-29 07:35 | disposition home or self-care (01) ==
LOC: ANHLAB 07:35
PROVIDERS: PCP Internal Medicine; Visit Provider Nurse Practitioner
DX: E11.9 Type 2 diabetes mellitus without complications (principal); D64.9 Anemia, unspecified; E78.5 Hyperlipidemia, unspecified
CPT/HCPCS: 36415; 80053; 80061; 83036; 85014; 85018

== ENCOUNTER 2021-11-11 07:44 | Outpatient (CLI) | payer MEDICARE, SELFPAY ==
[2021-11-11 08:54] LABS: Hemoglobin A1C 5.8 % (<5.7)
== END 2021-11-11 07:45 | disposition home or self-care (01) ==
PROVIDERS: PCP Internal Medicine; Visit Provider Internal Medicine
DX: E11.40 Type 2 diabetes mellitus with diabetic neuropathy, unspecified (principal)
CPT/HCPCS: 36415; 83036

== ENCOUNTER 2022-05-07 07:53 | Outpatient (CLI) | payer MEDICARE, SELFPAY ==
[2022-05-07 08:10] LABS: Hematocrit 39.7 % (37.0-47.0); Hemoglobin 13.2 g/dL (12.0-15.0)
[2022-05-07 08:21] LABS: Alanine Aminotransferase 30 U/L (6-35); Albumin Level 4.5 g/dL (3.5-5.1); Alkaline Phosphatase 84 U/L (38-126); Anion Gap 8 mmol/L (8-16); Aspartate Amino Transferase 36 U/L (14-36); Bilirubin,Total 0.7 mg/dL (0.2-1.3); Blood Urea Nitrogen 9 mg/dL (7-17); Calcium 9.1 mg/dL (8.4-10.2); Carbon Dioxide 27 mmol/L (22-30); Chloride 100 mmol/L (98-107); Estimated Glomerular Filt Rate > 60; Glucose 152 mg/dL (65-110); Potassium 4.2 mmol/L (3.4-5.0); Sodium 135 mmol/L (137-145)
[2022-05-07 08:45] LABS: Creatinine Urine 220.1 mg/dL
[2022-05-07 08:50] LABS: Microalbumin Urine Random 28.7 mg/L (0-16.7)
== END 2022-05-07 07:54 | disposition home or self-care (01) ==
PROVIDERS: PCP Internal Medicine; Visit Provider Nurse Practitioner
DX: D64.9 Anemia, unspecified (principal); E03.9 Hypothyroidism, unspecified; I10 Essential (primary) hypertension; E11.40 Type 2 diabetes mellitus with diabetic neuropathy, unspecified
CPT/HCPCS: 36415; 80053; 82043; 84443; 85014; 85018

== ENCOUNTER 2022-09-18 07:07 | Outpatient (CLI) | payer MEDICARE, SELFPAY ==
[2022-09-18 08:22] LABS: Alanine Aminotransferase 31 U/L (6-35); Albumin Level 4.3 g/dL (3.5-5.1); Alkaline Phosphatase 68 U/L (38-126); Anion Gap 9 mmol/L (8-16); Aspartate Amino Transferase 42 U/L (14-36); Bilirubin,Total 0.8 mg/dL (0.2-1.3); Blood Urea Nitrogen 10 mg/dL (7-17); Calcium 9.1 mg/dL (8.4-10.2); Carbon Dioxide 28 mmol/L (22-30); Chloride 101 mmol/L (98-107); Cholesterol 184 mg/dL (0-200); Estimated Glomerular Filt Rate > 60; Glucose 151 mg/dL (65-110); HDL Direct 60 mg/dL; Potassium 4.3 mmol/L (3.4-5.0); Sodium 138 mmol/L (137-145); Triglycerides 222 mg/dL (<150)
[2022-09-18 08:33] LABS: LDL Cholesterol Direct 83 mg/dL
[2022-09-18 08:53] LABS: Hemoglobin A1C 6.2 % (<5.7)
== END 2022-09-18 07:08 | disposition home or self-care (01) ==
PROVIDERS: Visit Provider Nurse Practitioner
DX: E78.5 Hyperlipidemia, unspecified (principal); E11.9 Type 2 diabetes mellitus without complications
CPT/HCPCS: 36415; 80053; 80061; 83036